=== PATIENT | male | born 1940 | race Caucasian/White ===

== ENCOUNTER 2018-02-18 18:23 | Inpatient (IN) | payer OTHER ==
[~2018-02-18] VITALS: Ht 152.4 cm; Wt 58.6 kg
--- NOTE | 2018-02-18 19:52 | ED GENERAL ADULT ---
History of Present Illness General Chief Complaint: Syncope and Near-Syncope Stated Complaint: NEAR SYNCOPAL Source: patient, family Exam Limitations: no limitations Vital Signs & Intake/Output Vital Signs & Intake/Output Vital Signs Date Time Temp Pulse Resp B/P B/P Pulse O2 O2 Flow FiO2 Mean Ox Delivery Rate 02/19 2024 98.2 80 20 120/66 99 Room Air 02/18 1954 97 Room Air 02/18 1826 97.7 79 16 145/77 97 Room Air Room Air Allergies Coded Allergies: No Known Allergies (12/27/15) Reconcile Medications No Known Home Medications Triage Note: PT BIBA WITH C/O SUDDEN ONSET OF WEAKNESS AND DIZZINESS WHILE AT WORK. DENIES SOB OR CP DURING EPISODE OR AT PRESENT. STROKE SCALE EN ROUTE NEGATIVE. BP LOW-NORMAL. ALL OTHER VSS. SX HAVE SUBSIDED TAPPER HELPER Triage Nurses Notes Reviewed? yes HPI: 77-year-old male with no significant past medical history presents with a single episode of lightheaded while working today at [employer]. Patient was standing experienced lightheadedness without loss of consciousness. Positive for diaphoresis for which the patient sat in the freezer waiting for an ambulance for 40 minutes. Negative for nausea vomiting chills fever constipation diarrhea. Negative for head trauma. Past History Medical History Any Pertinent Medical History? see below for history Neurological: NONE EENT: NONE Cardiovascular: NONE Respiratory: NONE Gastrointestinal: NONE Hepatic: NONE Renal: NONE Musculoskeletal: NONE Psychiatric: NONE Endocrine: NONE Blood Disorders: NONE Cancer(s): prostate cancer Tetanus Vaccine: 12/27/15 Surgical History Surgical History: non-contributory Psychosocial History What is your primary language Azeri Family History Hx Contributory? No Review of Systems Review of Systems Constitutional: Reports: no symptoms, see HPI. EENTM: Reports: no symptoms. Respiratory: Reports: no symptoms. Cardiovascular: Reports: no symptoms. GI: Reports: no symptoms. Genitourinary: Reports: no symptoms. Musculoskeletal: Reports: no symptoms. Skin: Reports: no symptoms. Neurological/Psychological: Reports: no symptoms. Hematologic/Endocrine: Reports: no symptoms. Immunologic/Allergic: Reports: no symptoms. All Other Systems: Reviewed and Negative Physical Exam Physical Exam General Appearance: no apparent distress, comfortable Comments: Gen.: Well-nourished, well-developed, no acute respiratory distress. Head: Normocephalic, atraumatic. Eyes: Normal inspection bilaterally, PERRLA, EOMI Ears: Normal inspection bilaterally Nose: Normal inspection Throat/mouth : Moist mucosa Neck: Supple, full range of motion, no goiter, equal carotid pulses, no carotid bruits Heart: Systolic heart murmur. Pulses are equal upper and lower. Lungs: Clear to auscultation bilaterally with normal air entry Chest: Nontender Back: Normal range of motion Abdomen: Soft, nontender, nondistended, normal bowel sounds Extremities: Normal range of motion grossly, equal radial pulses, no cyanosis clubbing or edema Neurologic: Cranial nerves 2 through 12 intact, speech is clear, no dysmetria Skin: warm and dry Psychiatric: Calm, cooperative, no apparent delusions or hallucinations Core Measures ACS in differential dx? Yes CVA/TIA Diagnosis: No Sepsis Present: No Sepsis Focused Exam Completed? No Progress Differential Diagnoses I considered the following diagnoses in my evaluation of the patient: During my care of this patient I considered the following differential diagnoses: Cardiac syncope/dysrhythmia but the patient had a prodromal phase and the EKG and telemetry showed no dysrhythmia, there were no significant electrolyte abnormalities, and the patient denied heart palpitations. In addition patient had 2 troponin levels that were normal. Obstructive hypertrophic cardiomyopathy but there was no history of syncope with exercise, dyspnea or chest pain on exertion, palpitations or history of cardiac disease or heart murmur. Aortic stenosis but the patient is no history of syncope after exercise and denied dyspnea/chest pain/syncope, had no crescendo decrescendo systolic murmur or precordial thrill. Subclavian steal syndrome but the patient denied arm pain or paresthesias and physical examination showed no pulse deficit. Carotid sinus hypersensitivity but physical examination reveals no goiter or other neck mass. Plan of Care: Orders Procedure Date/time Status URINALYSIS 02/18 193 Active MISTAKE 02/18 190 Active TROPONIN LEVEL 02/18 184 Complete COMPREHENSIVE METABOLIC PANEL 02/19 1848 Complete CBC WITHOUT DIFFERENTIAL 02/19 1848 Complete EKG 02/18 182 Active Current Medications Sig/Sony Start time Last Medication Dose Stop Time Status Admin Aspirin 325 MG ONCE ONE 02/18 2115 AC (Aspirin) 02/19 2116 Laboratory Tests 02/18/181940: Anion Gap 6, Estimated GFR 53 L, BUN/Creatinine Ratio 22.3, Glucose 112 H, Calcium 9.0, Total Bilirubin 0.4, AST 18, ALT 19 L, Alkaline Phosphatase 42, Troponin I 0.19 *H, Total Protein 6.3, Albumin 3.8, Globulin 2.5, Albumin/ Globulin Ratio 1.5, CBC w Diff NO MAN DIFF REQ, RBC 3.74 L, MCV 94.6 H, MCH 31.5 H, MCHC 33.3, RDW 13.5, MPV 6.7 L, Gran % 88.1 H, Lymphocytes % 6.9 L, Monocytes % 4.5, Eosinophils % 0.4, Basophils % 0.1, Absolute Granulocytes 8.0 H, Absolute Lymphocytes 0.6 L, Absolute Monocytes 0.4, Absolute Eosinophils 0, Absolute Basophils 0 Initial ED EKG: Sinus rhythm of 79. Normal axis. LVH. ST segment elevation in v1 , v3, v3 wihtout reciprical changes. Appropriate r-wave progression. No prior ECG for comparison. Comments: Spoke with Cardiology, Dr Fine, regarding Mr Mtz. EKG looks more like repolarization abnormalities. In [facility] there was a echo from 2014 which did not show aortic stenosis. However systolic murmur with LVH goes along with aortic stenosis. Patient to be admitted to telemetry for further evaluation. No prior EKG or troponin for comparison in [facility]. Departure Departure Disposition: STILL A PATIENT Condition: Stable Clinical Impression Primary Impression: Light-headed feeling Secondary Impressions: Elevated troponin, Heart murmur Referrals: Rob Mast MD (PCP/Family) Departure Forms: Customer Survey General Discharge Information Prescriptions: Current Visit Scripts No Known Home Medications Critical Care Note Critical Care Note Critical Care Time: non-applicable
[2018-02-18 19:53] LABS: ABSOLUTE BASOPHIL COUNT 0 /CUMM (0.0-0.2); ABSOLUTE EOSINOPHIL COUNT 0 /CUMM (0.0-0.7); ABSOLUTE LYMPH COUNT 0.6 /CUMM (1.2-3.4); ABSOLUTE MONOCYTE COUNT 0.4 /CUMM (0.10-0.60); BASOPHIL % 0.1 % (0.0-2.0); EOSINOPHIL % 0.4 % (0-5); GRANULOCYTE % 88.1 % (42.2-75.2); HEMATOCRIT 35.4 % (42-52); MEAN CORPUSCULAR HGB 31.5 PG (27.0-31.0); MEAN CORPUSCULAR HGB CONC 33.3 G/DL (33.0-37.0); MEAN CORPUSCULAR VOLUME 94.6 FL (80.0-94.0); MEAN PLATELET VOLUME 6.7 FL (7.4-10.4); PLATELET COUNT 286 /CUMM (130-400); RBC DISTRIBUTION WIDTH 13.5 % (11.5-14.5); RED BLOOD CELL CT 3.74 /CUMM (4.70-6.10); WHITE BLOOD CELL COUNT 9.1 /CUMM (4.8-10.8)
--- NOTE | 2018-02-18 22:02 | History & Physical ---
Jeffery Morales 02/18/181: General Information and HPI MD Statement: I have seen and personally examined SHAHRAM JENNINGS and documented this H&P. The patient is a 77 year old M who presented with a patient stated chief complaint of [near syncope]. Source of Information: patient, family Exam Limitations: no limitations History of Present Illness: The patient is a 77-year-old gentleman with a past medical history significant for prostate cancer and memory loss who was brought to [place] ED via ambulance due to one episode of lightheadedness which happened earlier today. Patient was accompanied by his in the exam room in ED, history was mainly taken from the patient but his also provided some information. The patient was working at the [employer] today when he suddenly felt "woobly". He did not fall on the ground and did not lose his consciousness and is aware of all the things that happened around him and no abnormal movement was reported, his coworkers at the [employer] took him to the back room, he felt dizziness for almost 20-25 minutes. He denies any associated symptoms like nausea, vomiting, headache, chest pain, chest pressure, chest tightness, sweating, chills, fever, abdominal pain, ringing in ears, visual changes, or abnormal smelling sensation. Based on the report from ED the patient had diaphoresis when he had this event for which he statin freezer while waiting for the ambulance. I rechecked that with the patient later and he denied sweating. The patient has a recent onset memory loss for the past couple of month, based on the reports from his he is not oriented to person sometimes for the past couple of months, and he has been having difficulty managing his financial issues like writing checks. Almost 2 weeks ago while he was driving he had difficulty finding out where he is not where he is going to. According to his , they have lived together in the same house, but they take care of their chores and foods and stuff separately, and she mentions that they have their own reasons for that; but she believes that from now on baby will have to change their lifestyle and she might need to take care of him. He had a history of low vitamin B12, no change in sensation, no numbness, no tingling. His appetite is normal, and his fluid intake has not changed recently. He has never undergone a colonoscopy, he does not report any blood in his stool, change in bowel habit, constipation, diarrhea, or weight loss. He was seen by contract serviceman many years ago and was never seen again by contract serviceman and he does not remember if he was ever told to have any cardiac problem. We have limited background medical history on PCI. He has not experienced any weakness, numbness, tingling in extremities, no difficulty swallowing, no slurred speech, no loss of sensation, numbness, weakness in face or other parts of his body. When looking at his face he has not a perfect shave but he does not look to be kyrie-agnosia. He does not report any exertional shortness of breath. He goes out with her dog daily for 10-15 minutes without experiencing any shortness of breath, he does not use a cane or walker at home to ambulate, he climbs the stairs down and up with no shortness of breath. He denies any chest pain, chest compression, chest tightness, lightheadedness, dizziness, sweating, nausea, and vomiting with exertion. He mentions that he failed slight dizziness while trying to stand up from sitting position in the exam room. Allergies: The patient does not have any known allergies to medications or foods Past medical history: Prostate cancer 15 years ago for which he had surgery and radiation and he is not on any medication for his prostate now Past surgical history: Prostatectomy, with type of the surgery is not known, probably radical, no complications reported by the patient, was done 15 years ago Family history: No significant Social history: Patient denies smoking, drinking, or recreational drug use. She lives with his in the same house, but either of them take care of the own household issues including food. Allergies/Medications Allergies: Coded Allergies: No Known Allergies (12/27/15) Compliance With Home Meds: UNKNOWN Past History Travel History Traveled to [place] past 21 day No Medical History Neurological: NONE EENT: NONE Cardiovascular: NONE Respiratory: NONE Gastrointestinal: NONE Hepatic: NONE Renal: NONE Musculoskeletal: NONE Psychiatric: NONE Endocrine: NONE Blood Disorders: NONE Cancer(s): prostate cancer Tetanus Vaccine: 12/27/15 Surgical History Surgical History: non-contributory Past Family/Social History Psychosocial History ETOH Use: denies use Illicit Drug Use: denies illicit drug use Review of Systems Review of Systems Constitutional: Reports: see HPI. Exam & Diagnostic Data Last 24 Hrs of Vital Signs/I&O Vital Signs Date Time Temp Pulse Resp B/P B/P Pulse O2 O2 Flow FiO2 Mean Ox Delivery Rate 02/18 2110 76 20 140/70 99 Room Air 02/19 2024 98.2 80 20 120/66 99 Room Air 02/18 1954 97 Room Air 02/18 1826 97.7 79 16 145/77 97 Room Air Room Air Physical Exam General Appearance Alert, Oriented X3, Cooperative, No Acute Distress Skin No Rashes, Actinc keratosis on lateral side of right elbow Skin Temp/Moisture Exam: Warm/Dry Sepsis Skin Exam (color): Normal for Ethnicity HEENT Atraumatic, PERRLA, EOMI, Mucous Membr. moist/pink Neck Supple, No JVD Cardiovascular Regular Rate, Normal S1, Normal S2, Systolic 3/6 murmur Lungs Clear to Auscultation, Normal Air Movement Last 24 Hrs of Labs/Lonnie: Laboratory Tests 02/19/18 0117: Troponin I 1.01 *H 02/18/182249: PT 13.0 H, INR 1.19 H 02/18/182113: Urinalysis LIGHT H, Urine Color YEL, Urine Clarity CLEAR, Urine pH 6.0, Ur Specific [place] 1.025, Urine Protein TRACE H, Urine Ketones TRACE H, Urine Nitrite NEG, Urine Bilirubin NEG, Urine Urobilinogen 1.0, Ur Leukocyte Esterase NEG, Ur Microscopic SEDIMENT EXAMINED, Urine RBC RARE, Urine WBC RARE, Ur Epithelial Cells FEW, Hyaline Casts 1-3 H, Urine Mucus MOD H, Urine Hemoglobin NEG, Urine Glucose NEG 02/18/181940: Anion Gap 6, Estimated GFR 53 L, BUN/Creatinine Ratio 22.3, Glucose 112 H, Calcium 9.0, Total Bilirubin 0.4, AST 18, ALT 19 L, Alkaline Phosphatase 42, Troponin I 0.19 *H, Total Protein 6.3, Albumin 3.8, Globulin 2.5, Albumin/ Globulin Ratio 1.5, CBC w Diff NO MAN DIFF REQ, RBC 3.74 L, MCV 94.6 H, MCH 31.5 H, MCHC 33.3, RDW 13.5, MPV 6.7 L, Gran % 88.1 H, Lymphocytes % 6.9 L, Monocytes % 4.5, Eosinophils % 0.4, Basophils % 0.1, Absolute Granulocytes 8.0 H, Absolute Lymphocytes 0.6 L, Absolute Monocytes 0.4, Absolute Eosinophils 0, Absolute Basophils 0 Diagnostic Data EKG Results 2 EKGs were done, minimal ST depression in leads aVF and II, no change between the 2 EKGs Other Results Head CT scan: No acute intracranial hemorrhage or mass effect. Generalized cerebral volume loss with chronic microvessel ischemic fisher Assessment/Plan Assessment: The patient is a 77-year-old male with a past medical history for prostate cancer 15 years ago and recent onset dementia, who was brought to ED by ambulance due to a presyncope syndrome. The patient has not been following up for healthcare and we do not have any old records available here. He has states that he does not have any health issues other than dementia. Near syncope finding cause: The patient had a near syncope episode that [employer] while he was at work, no other symptoms were associated with this event which was witnessed by his coworkers. We obtained a head CT scan which ruled out acute hemorrhagic pathologies in this patient. There is a possibility that this might have a cardiac origin. The patient does have a systolic murmur, and based on the ED report he had sweating at the time of near syncope event. He has not been on anticoagulation and does not take any cardiac medications or statin. He had troponin of 0.19 on admission, creatinine of 1.7 (we do not know if it is acute or chronic kidney failure). His troponin increased to 1.01 almost 6 hours later. The patient did not report chest pain, chest pressure, chest tightness, shortness of breath, nausea, vomiting. After discussing the case with my senior resident and my attending Dr. Pop, they decided to start heparin drip for this patient and place her contract serviceman consult for morning. Plan: Aspirin, atorvastatin, serial EKG troponin, head CT, rectal exam for guaiac before starting heparin which was negative for guiac, color Dopplers ultrasound of carotid arteries, avoid nephrotoxic agents, IV fluids, As Ranked By This Provider Problem List: 1. Light-headed feeling 2. Elevated troponin 3. Heart murmur Core Measures/Misc (02/11) Acute Coronary Syndrome ACS Diagnosis: No Congestive Heart Failure Congestive Heart Failure Diagnosis No Cerebrovascular Accident CVA/TIA Diagnosis: No VTE (View Protocol) VTE Risk Factors Age>40 No Mechanical VTE Prophylaxis d/t N/[facility] VTE Pharm Prophylaxis d/t NA PharmProphylax ordered Sepsis (View protocol) Sepsis Present: No If YES complete Sepsis Event Note If YES complete Sepsis Event Note Freddy Garcia MD 02/18/18 4525: General Information and HPI Allergies/Medications Home Med list Mirtazapine 15 MG TABLET 1 TAB PO QPM DEPRESSION (Reported) Core Measures/Misc (02/11) Acute Coronary Syndrome ACS Diagnosis: No Congestive Heart Failure Congestive Heart Failure Diagnosis No VTE (View Protocol) VTE Risk Factors Age>40 No Mechanical VTE Prophylaxis d/t N/A MechProphylax Ordered No VTE Pharm Prophylaxis d/t NA PharmProphylax ordered Sepsis (View protocol) Sepsis Present: No If YES complete Sepsis Event Note If YES complete Sepsis Event Note Resident Review Statement Resident Statement: examined this patient, discussed with learning and development intern, agreed with learning and development intern Other Findings: Patient is a 77-year-old male BIBA with an episode of sudden loss of awareness of surroundings, which was lasted around 25 minutes. PMH-history of prostate surgery around 15 years ago underwent radiation, history of inguinal hernia, recently undergoing evaluation for dementia under Dr. Rommel Peterson and scheduled to get MRI brain, depression on mirtazapine, low vitamin B12 History of present illness-patient works at [employer] he was completely all right all over the morning he had small amount of the breakfast and lunch. When he was getting some stuff to another coworker he suddenly felt that he is unable to understand surrounding. He was not able to respond. They sat him down for 25 minute and called ambulance. He was feeling woobly at that time. Denies any headache, dizziness, nausea, vomiting, chest pain, shortness of breath, palpitation. In the past he had a similar episode around 2 weeks ago, he lost while driving and unable to figure out how to go back to the home. He did not had any accidental hit his car. He had to call his to know where to go. Because of this episode he lost his full-time job around 2 weeks ago and both spouses and stress. He had his evaluation with his primary care Dr. Rommel Vitale daily. During that visit his blood pressure was 150/90. He was not given any medication but started on tablet mirtazapine 7.5 mg daily. Personal history-he lives with his , works at the [employer], denies smoking, alcohol, use of other medications.They have stress as he recently lost his job. Vital signs -temperature 97.7, pulse 79, respiratory 16, blood pressure 145/77, SPO2 97% on room air. On physical examination-conscious cooperative oriented to time place and person, neck supple, no JVD, lungs bilateral clear, heart S1-S2 normal along with a systolic murmur and aortic pulmonary and tricuspid and mitral area more prominent in the mitral area nonradiating, abdomen soft bowel sounds positive, neurological examination-cranial nerves intact following all the verbal command, moving all limbs, DTRs 2+, plantar flexor, extremities-no edema, pulses palpable. Blood workup-hemoglobin 11.8, hematocrit 35.4, MCV 94.6, platelet count 286, granulocyte 88.1, Serum sodium 135, potassium 4.1, chloride 99, carbon DEXA 30, anion gap 6, BUN 29, creatinine 1.3, GFR 53, glucose 112, calcium 9.0, total bilirubin 0.4, AST 18, ALT 19, alkaline phosphatase 42, troponin I 0.19, albumin 3.8, PT/INR 13/ 1.19, urinalysis-light, trace proteins and ketones, hyaline cast 1-3. Problem list- * Presyncope/syncope under evaluation possible TIA/arrhythmia need to rule out acute coronary syndrome * Demand ischemia * Normocytic normochromic anemia * Hyponatremia * Acute kidney injury Assessment and plan- * We will admit the patient to telemetry floor * We will do carotid, echocardiogram, lipid profile, orthostatic blood pressure (lying 140/70, sitting 139/70, standing 131/76) * We will do serial troponins and EKGs - 12:00 and 6:00AM * We will do CT scan of the head to rule out any infarction * We will start patient on gentle IV fluids 50 cc/h; for TURNER * We will consider ultrasound of the abdomen if patient's BP does not improve after IV hydration to rule out postobstructive causes. * We will continue mirtazapine as before. * CODE STATUS DNR/DNI * DVT prophylaxis-ALPS/heparin * Diet-heart healthy diet Please call the [phone] for any updates. Rafael Pop MD 02/19/18 0303: Core Measures/Misc (02/11) Sepsis (View protocol) If YES complete Sepsis Event Note If YES complete Sepsis Event Note Attending MD Review Statement Attending Statement Attending MD Statement: examined this patient, discuss w/resident/PA/ACCOUNTS PAYABLE PAYROLL COORDINATOR, agreed w/resident/PA/ACCOUNTS PAYABLE PAYROLL COORDINATOR Attending Assessment/Plan: Patient is seen and examined independently by me. Care plan discussed with biomedical engineering technician and/or resident. I agree with the physical exam findings and plan of care as outlined above with the following changes and additions. 77 yo male with history of prostate cancer s/p radiation, recent forgetfulness and being worked up for dementia, presented with lightheadedness. At about 4: 30pm, he was working and standing at that time, he has sudden onset of lightheadedness, diaphoresis and co-worker states he appears not aware of his surroundings but has no LOC or incontinence. He was sat down by his co-worker and his symptoms resolved in 45 min. He denies chest pain, SOB, palpitation, abdominal pain or nausea. On cardiac exam, it is regular, S1S2 and has a HSM heard best at lower LSB and apex with thrills at apex. Lungs are clear and has no pedal edema. In the ED, troponin 0.19. EKG shows NSR at 79 with LVH and QS complex in anterior leads. Patient is admitted to inpatient to [facility] for near syncope and elevated troponin. CT head shows no acute intracranial abnormality. Cardiac monitoring. Check lipid profile and serial troponin/EKG. Check carotid US and echocardiogram. Start ASA. Cardiology consult. His second troponin rises to 1.01, no new EKG changes, asymptomatic. Treat for NSTEMI with ASA, IV heparin and statin. HR 60 and will not start beta-claudia now. Signed: Rafael Pop MD FACP
[2018-02-18] MEDS ORDERED: MIRTAZAPINE15 M2 PO (23:20)
--- NOTE | 2018-02-19 01:53 | CT SCAN REPORT ---
EXAMINATION: CT HEAD WITHOUT CONTRAST CLINICAL INFORMATION: TIA. Lightheadedness, presyncope. COMPARISON: None TECHNIQUE: Contiguous axial imaging was performed from the skull base to vertex without intravenous administration of contrast. DLP: 604 mGy-cm FINDINGS: There is no evidence of acute intracranial hemorrhage, midline shift, mass effect, or extra-axial fluid collection. There is generalized cerebral and cerebellar volume loss. There is a background of fairly confluent hypoattenuation involving the cerebral white matter bilaterally, nonspecific, though most compatible with chronic microvascular ischemic change. No evidence of hydrocephalus. Dilated perivascular space in the left temporal stem. The calvarium is intact. Thoracic calcifications along the carotid siphons noted. Visualized paranasal sinuses and mastoid air cells are essentially clear. IMPRESSION: No acute intracranial hemorrhage or mass effect. Generalized cerebral volume loss with chronic microvessel ischemic change.
[2018-02-19 02:12] VITALS: BP 130/80
[2018-02-19 06:00] VITALS: BP 140/82
[2018-02-19 07:51] LABS: ABSOLUTE BASOPHIL COUNT 0 /CUMM (0.0-0.2); ABSOLUTE EOSINOPHIL COUNT 0.1 /CUMM (0.0-0.7); ABSOLUTE GRANULOCYTE CT 3.5 /CUMM (1.4-6.5); ABSOLUTE LYMPH COUNT 1.1 /CUMM (1.2-3.4); ABSOLUTE MONOCYTE COUNT 0.2 /CUMM (0.10-0.60); BASOPHIL % 0.5 % (0.0-2.0); GRANULOCYTE % 71.9 % (42.2-75.2); HEMATOCRIT 32.7 % (42-52); MEAN CORPUSCULAR HGB 32.3 PG (27.0-31.0); MEAN CORPUSCULAR HGB CONC 34.6 G/DL (33.0-37.0); MEAN CORPUSCULAR VOLUME 93.3 FL (80.0-94.0); MEAN PLATELET VOLUME 7.7 FL (7.4-10.4); PLATELET COUNT 239 /CUMM (130-400); RBC DISTRIBUTION WIDTH 13.2 % (11.5-14.5); RED BLOOD CELL CT 3.51 /CUMM (4.70-6.10); WHITE BLOOD CELL COUNT 4.9 /CUMM (4.8-10.8)
[2018-02-19 08:16] LABS: PTT 39 SEC (25-37)
--- NOTE | 2018-02-19 09:07 | PN- Gen Med ---
Violetta Santos 02/19/18 0907: Assessment/Plan Medical Problem List: 1. Light-headed feeling 2. Elevated troponin 3. Heart murmur Plan: 77 year old male with PMH prostate cancer (remote tx with radiation) presented with near syncope and admitted with elevated troponins. Problem List 1. Near syncope rule out TIA vs Cardiac origin vs PE 2. Elevated troponins likely 2/2 demand ischemia 3. TURNER #Near syncope rule out TIA vs Cardiac origin vs PE -CTA negative for PE -Cardiology consult: obtain CTA r/o PE; Echo to evaluate for cardiac origin; possibly need outpatient stress test -Reaching out to cardiology for advise to discontinue IV heparin now that trop has down trended #Elevated troponins -down trending; no longer following -likely due to demand ischemia; echo pending for structural heart disease #TURNER-resolved with IV hydration -IV fluids discontinued this morning DVT prophylaxis: IV heparin/ambulate Code status: DNR/DNI Discharge: anticipate discharge possibly tomorrow if echo results are in. Subjective Follow-up For: near syncope Complaints: no complaints Tele-Events Since Last Visit: sinus bradycardia 54-69 rate Subjective: No complaints or events overnight. Patient denies any chest pain, SOB, n/v/d, palpitations, lightheadedness, dizziness. Review of Systems Constitutional: Reports: no symptoms. EENTM: Reports: no symptoms. Cardiovascular: Reports: no symptoms. Respiratory: Reports: no symptoms. Gastrointestinal: Reports: no symptoms. Genitourinary: Reports: no symptoms. Musculoskeletal: Reports: no symptoms. Skin: Reports: no symptoms. Objective Last 24 Hrs of Vital Signs/I&O Vital Signs Date Time Temp Pulse Resp B/P B/P Pulse O2 O2 Flow FiO2 Mean Ox Delivery Rate 02/19 1428 98.3 71 20 140/68 97 Room Air 02/19 0600 98.6 68 20 140/82 97 Room Air 02/19 0212 98.1 71 12 130/80 98 Room Air 02/19 0127 98.9 62 20 152/77 98 Room Air 02/19 0026 Room Air 02/18 2330 99.0 70 20 126/62 98 Room Air 02/18 2110 76 20 140/70 99 Room Air 02/19 2024 98.2 80 20 120/66 99 Room Air 02/184 97 Room Air 02/18 1826 97.7 79 16 145/77 97 Room Air Room Air Intake & Output 02/19 1600 02/19 0800 02/19 0000 Intake Total 372 Output Total 200 Balance 372 -200 Intake, IV 252 Intake, Oral 120 Output, Urine 200 Patient 120 lb 150 lb Weight Weight Bed scale Reported by Patient Measurement Method Physical Exam General Appearance: Alert, Oriented X3, Cooperative, No Acute Distress, oriented x3 although slow to come up with date and location, thin male Skin: No Rashes Skin Temp/Moisture Exam: Warm/Dry HEENT: Atraumatic, PERRLA Neck: Supple Cardiovascular: Regular Rate, Normal S1, Normal S2, systolic murmur Lungs: Clear to Auscultation Abdomen: Normal Bowel Sounds, Soft Extremities: No Cyanosis, No Edema Gurdeep RUBY,Adali 02/19/18 0955: Assessment/Plan Medical Assessment: Patient seen and examined. Agree with interns note. This is a 77-year-old male with a past medical history of prostate CA who came in with a near syncopal event and was found to have a positive troponin. He has no symptoms and his EKG has LVH which makes ischemia hard to diagnose. Discussed with Dr. Houston from cardiology and will get a CTA to make sure there is no PE. He is on aspirin statin and's been started on IV heparin empirically and will follow up.
--- NOTE | 2018-02-19 10:47 | Cons- Cardiology ---
General Information and HPI Consulting Request Date of Consult: 02/19/18 Requested By: Gurdeep RUBY,Adali Garrett Reason for Consult: Syncope, elevated troponin isoenzyme Source of Information: patient, old records Exam Limitations: no limitations History of Present Illness: The patient is a 77-year-old gentleman with a past medical history of prostate CA (status post remote radiation therapy). He presents to our hospital with a sudden episode of near syncope, and subsequently had an elevated troponin isoenzyme. The patient states he was at work (light physical work in a [employer]), and suddenly had onset of lightheadedness, without vertigo. There was no concurrent symptoms of palpitations nor chest pain, dyspnea nor nausea. The episode was examined, lasting several minutes, and had spontaneous alleviation. On presentation to the emergency room, the patient was noted to be hemodynamically stable, in normal sinus rhythm by EKG and without ischemic changes. He was however noted to be hyponatremic, and subsequently ruled in for myocardial infarction with troponin isoenzymes peaking at 1.01. Following admission, telemetry demonstrates no arrhythmias noted. He has remained asymptomatic from a cardiac standpoint while an inpatient. Of note, the patient had an episode of sudden confusion while driving several weeks ago. This was stated as a sudden disorientation as to location, not accompanied by palpitations chest pain nor dyspnea. The patient is otherwise active, and describes performance of approximately 6 METs of physical activity on a regular basis without difficulty. Allergies/Medications Allergies: Coded Allergies: No Known Allergies (12/27/15) Home Med List: Mirtazapine 15 MG TABLET 1 TAB PO QPM DEPRESSION (Reported) Current Medications: Current Medications Sig/Sony Start time Last Medication Dose Route Stop Time Status Admin Aspirin 81 MG DAILY 02/19 900 DC PO Aspirin 325 MG DAILY 02/19 900 CAN PO Aspirin 81 MG DAILY 02/19 900 CAN PO Aspirin 325 MG DAILY 02/19 900 AC 02/19 PO 924 Aspirin 325 MG ONCE ONE 02/18 2115 DC 02/18 PO 02/18 Aspirin 0 .STK-MED ONE 02/18 2114 DC PO Atorvastatin Calcium 80 MG 0 02/19 1700 AC PO Atorvastatin Calcium 40 MG 1700 02/19 0345 DC PO Atorvastatin Calcium 80 MG 1700 02/19 0315 CAN PO 02/19 0500 Heparin Sodium 25,000 UNIT Q24H 02/19 0315 AC 02/19 (Porcine) IV 0400 Sodium Chloride 500 ML Heparin Sodium 5,000 UNIT Q8 02/18 2319 DC 02/19 (Porcine) SC 0010 Mirtazapine 15 MG QPM 02/19 2100 AC PO Sodium Chloride 1,000 ML Q20H 02/19 0115 DC 02/19 IV 0125 Review of Systems Review of Systems: The review of systems is negative for chest pains, palpitations nor lightheadedness. The remainder of the 14 point review of systems is noncontributory with the exception of above. Past History Travel History Traveled to [place] past 21 day No Medical History Neurological: NONE EENT: NONE Cardiovascular: NONE Respiratory: NONE Gastrointestinal: NONE Hepatic: NONE Renal: NONE Musculoskeletal: NONE Psychiatric: NONE Endocrine: NONE Blood Disorders: NONE Cancer(s): prostate cancer Surgical History Surgical History: non-contributory Psychosocial History Smoking Status: Never Smoked ETOH Use: denies use Illicit Drug Use: denies illicit drug use Exam & Diagnostic Data Vital Signs and I&O Vital Signs Date Time Temp Pulse Resp B/P B/P Pulse O2 O2 Flow FiO2 Mean Ox Delivery Rate 02/19 0600 98.6 68 20 140/82 97 Room Air 02/19 0212 98.1 71 12 130/80 98 Room Air 02/19 0127 98.9 62 20 152/77 98 Room Air 02/19 0026 Room Air 02/18 2330 99.0 70 20 126/62 98 Room Air 02/18 2110 76 20 140/70 99 Room Air 02/19 2024 98.2 80 20 120/66 99 Room Air 02/18 1954 97 Room Air 02/18 1826 97.7 79 16 145/77 97 Room Air Room Air Intake & Output 02/19 1600 02/19 0800 02/19 0000 02/18 1600 02/18 0800 02/18 0000 Intake Total 372 Output Total 200 Balance 372 -200 Intake, IV 252 Intake, Oral 120 Output, Urine 200 Patient 120 lb 150 lb Weight Weight Bed scale Reported by Patient Measurement Method Physical Exam: General: Nontoxic, no apparent distress. HEENT: Sclera and conjunctiva within normal limits, without xanthelasmas. Neck: Carotids 2+ without bruits. Respiratory: Clear to auscultation, air movement is good, without accessory respiratory muscle use. Heart: Regular rate and rhythm, 3/6 systolic murmur heard best right sternal border, unchanged with inspiration or Valsalva., without JVD. Abdomen: Soft, nontender, no masses, normoactive bowel sounds. Extremities: Without clubbing, cyanosis, without edema. Neuro: Nonfocal exam, strength, 5 out of 5 Skin: Within normal limits without lesions. Psych: Mood and affect: Normal Labs/Lonnie Results: Laboratory Tests 02/19 02/19 02/18 0640 0117 2250 Chemistry Sodium (137 - 145 mmol/L) 134 L Potassium (3.5 - 5.1 mmol/L) 4.0 Chloride (98 - 107 mmol/L) 104 Carbon Dioxide (22 - 30 mmol/L) 25 Anion Gap (5 - 16) 5 BUN (9 - 20 mg/dL) 24 H Creatinine (0.7 - 1.2 mg/dL) 0.9 Estimated GFR (>60 ml/min) > 60 BUN/Creatinine Ratio (7 - 25 %) 26.7 H Troponin I (<0.11 ng/ml) 0.65 *H 1.01 *H Triglycerides (<150 mg/dL) 39 Cholesterol (< 200 MG/DL) 157 LDL Cholesterol, Calc (65 - 129 mg/dL) 99 HDL Cholesterol (40 - 60 mg/dL) 51 Cholesterol/HDL Ratio (0.00 - 4.88 %) 3.1 Coagulation PT (9.4 - 12.5 SEC) 13.0 H INR (0.90 - 1.17) 1.19 H APTT (25 - 37 SEC) 39 H Hematology CBC w Diff NO MAN DIFF REQ WBC (4.8 - 10.8 /CUMM) 4.9 RBC (4.70 - 6.10 /CUMM) 3.51 L Hgb (14.0 - 18.0 G/DL) 11.3 L Hct (42 - 52 %) 32.7 L MCV (80.0 - 94.0 FL) 93.3 MCH (27.0 - 31.0 PG) 32.3 H MCHC (33.0 - 37.0 G/DL) 34.6 RDW (11.5 - 14.5 %) 13.2 Plt Count (130 - 400 /CUMM) 239 MPV (7.4 - 10.4 FL) 7.7 Gran % (42.2 - 75.2 %) 71.9 Lymphocytes % (20.5 - 51.1 %) 21.7 Monocytes % (1.7 - 9.3 %) 3.9 Eosinophils % (0 - 5 %) 2.0 Basophils % (0.0 - 2.0 %) 0.5 Absolute Granulocytes (1.4 - 6.5 /CUMM) 3.5 Absolute Lymphocytes (1.2 - 3.4 /CUMM) 1.1 L Absolute Monocytes (0.10 - 0.60 /CUMM) 0.2 Absolute Eosinophils (0.0 - 0.7 /CUMM) 0.1 Absolute Basophils (0.0 - 0.2 /CUMM) 0 02/18 Chemistry Sodium (137 - 145 mmol/L) 135 L Potassium (3.5 - 5.1 mmol/L) 4.1 Chloride (98 - 107 mmol/L) 99 Carbon Dioxide (22 - 30 mmol/L) 30 Anion Gap (5 - 16) 6 BUN (9 - 20 mg/dL) 29 H Creatinine (0.7 - 1.2 mg/dL) 1.3 H Estimated GFR (>60 ml/min) 53 L BUN/Creatinine Ratio (7 - 25 %) 22.3 Glucose (65 - 99 mg/dL) 112 H Calcium (8.4 - 10.2 mg/dL) 9.0 Total Bilirubin (0.2 - 1.3 mg/dL) 0.4 AST (17 - 59 U/L) 18 ALT (21 - 72 U/L) 19 L Alkaline Phosphatase (< 127 U/L) 42 Troponin I (<0.11 ng/ml) 0.19 *H Total Protein (6.3 - 8.2 g/dL) 6.3 Albumin (3.5 - 5.0 g/dL) 3.8 Globulin (1.9 - 4.2 gm/dL) 2.5 Albumin/Globulin Ratio (1.1 - 2.2 %) 1.5 Hematology CBC w Diff NO MAN DIFF REQ WBC (4.8 - 10.8 /CUMM) 9.1 RBC (4.70 - 6.10 /CUMM) 3.74 L Hgb (14.0 - 18.0 G/DL) 11.8 L Hct (42 - 52 %) 35.4 L MCV (80.0 - 94.0 FL) 94.6 H MCH (27.0 - 31.0 PG) 31.5 H MCHC (33.0 - 37.0 G/DL) 33.3 RDW (11.5 - 14.5 %) 13.5 Plt Count (130 - 400 /CUMM) 286 MPV (7.4 - 10.4 FL) 6.7 L Gran % (42.2 - 75.2 %) 88.1 H Lymphocytes % (20.5 - 51.1 %) 6.9 L Monocytes % (1.7 - 9.3 %) 4.5 Eosinophils % (0 - 5 %) 0.4 Basophils % (0.0 - 2.0 %) 0.1 Absolute Granulocytes (1.4 - 6.5 /CUMM) 8.0 H Absolute Lymphocytes (1.2 - 3.4 /CUMM) 0.6 L Absolute Monocytes (0.10 - 0.60 /CUMM) 0.4 Absolute Eosinophils (0.0 - 0.7 /CUMM) 0 Absolute Basophils (0.0 - 0.2 /CUMM) 0 Urines Urinalysis LIGHT H Urine Color (YEL,AMB,STR) YEL Urine Clarity (CLEAR) CLEAR Urine pH (5.0 - 8.0) 6.0 Ur Specific [place] (1.001 - 1.035) 1.025 Urine Protein (NEG,<30 MG/DL) TRACE H Urine Ketones (NEG) TRACE H Urine Nitrite (NEG) NEG Urine Bilirubin (NEG) NEG Urine Urobilinogen (0.1 - 1.0 EU/dl) 1.0 Ur Leukocyte Esterase (NEG) NEG Ur Microscopic SEDIMENT EXAMINED Urine RBC (0 - 5 /HPF) RARE Urine WBC (0 - 2 /HPF) RARE Ur Epithelial Cells (NONE,FEW) FEW Hyaline Casts (0/LPF) 1-3 H Urine Mucus (FEW,NONE) MOD H Urine Hemoglobin (NEG) NEG Urine Glucose (N MG/DL) NEG Assessment/Plan Assessment/Plan 77-year-old gentleman with a past medical history of prostate CA (status post remote radiation therapy). He presents to our hospital with a sudden episode of near syncope. He was noted to have elevated troponin isoenzymes. Near syncope: The patient presents with near syncope without a prodrome of palpitations chest pain nor dyspnea. The etiology of his symptoms is unclear; however, he remained hemodynamically stable following presentation to our emergency room. The elevated troponin isoenzyme concurrently on presentation may suggest an arrhythmia that was transient in nature; however, may as well represented etiology such as a pulmonary embolism. A CTA will be obtained today to exclude the same, and an echocardiogram will be obtained to better evaluate his cardiac structure and function including potential etiology to his murmur. The transient episode of disorientation while driving several weeks ago however is unlikely secondary to a arrhythmic etiology given his maintenance of postural tone and no near-syncopal symptoms. Troponin isoenzyme elevation: The patient has a mild troponin isoenzyme elevation in the setting of near syncope. We will continue to evaluate for a possible underlying pulmonary embolism as the etiology. Other possible etiologies include arrhythmia as well as underlying structural abnormality. An ischemic etiology is unlikely; however , stress testing with imaging will be performed at a later date. Thank you for allowing us to participate in the care of your patient. Please do not hesitate to contact us further with any questions. Sincerely, Vini Montalvo MD [facility] Consult Acknowledgment - Thank you for your consult request.
--- NOTE | 2018-02-19 11:45 | ULTRASOUND REPORT ---
EXAMINATION: BILATERAL DUPLEX CAROTID ULTRASOUND CLINICAL INDICATION: Near syncope. COMPARISON: None TECHNIQUE: TECHNIQUE: Real-time ultrasound and Doppler techniques (integrating B-mode 2D vascular images, Doppler spectral analysis and color flow Doppler imaging) were utilized to interrogate the extracranial carotid and vertebral arteries bilaterally. The degree of stenosis determined by criteria similar to NASCET. . FINDINGS: On the RIGHT, mild focal atherosclerotic calcified plaques are present at the distal common carotid artery extending into the bifurcation. In the distal CCA, the peak systolic velocity is 59 cm/sec. In the proximal ICA, the peak systolic velocity is 80 cm/sec, and the end diastolic velocity is 26 cm/sec. The ICA/CCA ratio is 1.71. The proximal part of the right ECA is patent. On the LEFT, mild focal atherosclerotic calcified plaques are present at the distal common carotid artery and extending into the origin of the internal carotid artery. In the distal CCA, the peak systolic velocity is 62 cm/sec. In the proximal ICA, the peak systolic velocity is 72 cm/sec, and the end diastolic velocity is 28 cm/sec. The ICA/CCA ratio is 1.52. The proximal part of the left ECA is patent as well. The vertebral arteries show antegrade flow with normal waveforms bilaterally. IMPRESSION: 1. The right internal carotid artery shows no hemodynamically significant stenosis. 2. The left internal carotid artery shows no hemodynamically significant stenosis. 3. Both vertebral arteries are patent and show antegrade flow.
--- NOTE | 2018-02-19 12:13 | CT SCAN REPORT ---
EXAMINATION: CT ANGIOGRAM OF THE CHEST WITH AND WITHOUT CONTRAST (CT PULMONARY ANGIOGRAM FOR PE) CLINICAL INFORMATION: Reason for Study:
Presumptive Dx: ACS vs PE
Signs Symptoms: near syncope
COMPARISON: None TECHNIQUE: Prior to contrast administration, noncontrast localization images were obtained. Subsequently, multidetector volumetric imaging was performed from the thoracic inlet to below the diaphragms following the administration of 95 mL Optiray 320 intravenous contrast. No contrast reaction reported. Sagittal, coronal, and MIP oblique sagittal reformatted images were obtained on the CT workstation, uploaded to PACS, and reviewed. Total exam dose-length product 245.45 mGy-cm. FINDINGS: QUALITY OF STUDY/CONTRAST BOLUS: Satisfactory PULMONARY ARTERIES: No central or segmental pulmonary emboli. THORACIC AORTA: The ascending thoracic aorta measures 4 cm at its maximum dimension, mildly aneurysmal. LUNG: Subtle pleural parenchymal opacities are noted at both lung apices, presumably represent pleural parenchymal scar. Mild hypoventilatory changes are noted at both lung bases. Otherwise unremarkable. The tracheobronchial tree appeared patent. PLEURA: No pleural effusion or pneumothorax. MEDIASTINUM: Normal heart size. No pericardial effusion. No hilar or mediastinal lymphadenopathy. No evidence of septal bowing or right heart strain. CHEST WALL/AXILLA: No axillary or internal mammary lymphadenopathy. OSSEOUS STRUCTURES: No acute or suspicious osseous abnormality. UPPER ABDOMEN: Unremarkable. No reflux of contrast into the hepatic veins to suggest elevated right heart pressures. IMPRESSION: No CT evidence of pulmonary embolism. The ascending thoracic aorta measures 4 cm at its maximum dimension, mildly aneurysmal. Presumed pleural parenchymal scar at both lung apices and hypoventilatory changes at both lung bases are present. VTE: negative.
[2018-02-19 13:41] LABS: PTT 44 SEC (25-37)
[2018-02-19 14:28] VITALS: BP 140/68
[2018-02-19] MEDS ORDERED: ATORVASTATIN CA80 M1 PO (15:35)
[2018-02-19] MEDS ORDERED: ASPIRIN325 M2 PO (15:35)
[2018-02-19 22:28] VITALS: BP 136/76
--- NOTE | 2018-02-20 06:17 | Event Note ---
Event Note Event Note: Subjective: A stroke alert was called for Mr Keen, I rushed with my resident toward [facility] room. He was lying in bed and does not seem in any distress, while talking with patient he does not seem to have slurred speech, apparently there was no facial drip, no focal deficit. Background: 77 year old male with PMH prostate cancer s/p radiation theraphy presented with near syncope and admitted with elevated troponins, TURNER. A/P: O/E: Patient was oriented in time place person. 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 My resident spoke with Neurologist he did not reommended tPA because patient was seen last time in usual state of health at 11pm so he is not a good candidate for tPA now due to window period for tPA.. CT scan without contrast ordered. CT head showed no acute changes ischemia or bleed. MRI of brain ordered. Patient discussed with morning team informed about nigt event and furthur management.
--- NOTE | 2018-02-20 06:19 | CT SCAN REPORT ---
EXAMINATION: CT HEAD WITHOUT CONTRAST CLINICAL INFORMATION: Stroke. Right facial droop. COMPARISON: CT head 02/19/2018 TECHNIQUE: Contiguous axial imaging was performed from the skull base to vertex without intravenous administration of contrast. DLP: 611 mGy-cm FINDINGS: There is no evidence of acute intracranial hemorrhage, midline shift, mass effect, or extra-axial fluid collection. There is generalized cerebral and cerebellar volume loss. There is a background of fairly confluent hypoattenuation involving the cerebral white matter bilaterally, nonspecific, though most compatible with chronic microvascular ischemic change. No evidence of hydrocephalus. Dilated perivascular space in the left temporal stem. The calvarium is intact. Thoracic calcifications along the carotid siphons noted. Visualized paranasal sinuses and mastoid air cells are essentially clear. IMPRESSION: Stable exam. No acute intracranial hemorrhage or large territorial infarct. Please note, the background of chronic microvascular ischemic change limits evaluation for acute ischemia. MRI would be more sensitive to evaluate for acute ischemia. This critical result was discussed with Dr. Garcia on 02/20/2018 6:12 AM, and it was ascertained that the content and urgency of the report was understood at the time of direct communication.
[2018-02-20 06:43] VITALS: BP 180/90
--- NOTE | 2018-02-20 08:05 | PN- Housestaff ---
Acosta Santosley 02/20/18 0805: Subjective Follow-up For: near syncope Complaints: no complaints Tele-Events Since Last Visit: sinus rhythm rate 62-71 Subjective: Stroke Event called last night. Patient was described to be wandering around and RN noticed right sided facial droop. Medical team responded and did not appreciate any focal deficits. Neurology was called and did not recommend tPA. This morning patient states he felt fine the whole time. He denies any lightheadedness, chest pain, SOB, confusion, fever, abdominal pain. Review of Systems Constitutional: Reports: no symptoms. EENTM: Reports: no symptoms. Cardiovascular: Reports: no symptoms. Respiratory: Reports: no symptoms. Gastrointestinal: Reports: no symptoms. Genitourinary: Reports: no symptoms. Musculoskeletal: Reports: no symptoms. Skin: Reports: no symptoms. Objective Last 24 Hrs of Vital Signs/I&O Vital Signs Date Time Temp Pulse Resp B/P B/P Pulse O2 O2 Flow FiO2 Mean Ox Delivery Rate 02/20 0817 93 164/84 02/20 0700 70 180/96 02/20 0643 98.2 80 18 180/90 98 02/20 0543 96 Room Air 02/19 2228 98.3 72 16 136/76 96 Room Air 02/19 2029 128/68 02/19 1428 98.3 71 20 140/68 97 Room Air Intake & Output 02/20 1600 02/20 0800 02/20 0000 Intake Total 120 240 Output Total Balance 120 240 Intake, Oral 120 240 Patient 129 lb Weight Physical Exam General Appearance: Alert, Oriented X3, Cooperative, No Acute Distress Skin: No Rashes Skin Temp/Moisture Exam: Warm/Dry HEENT: Atraumatic, PERRLA Neck: Supple Cardiovascular: Regular Rate, Normal S1, Normal S2, systolic murmur heard best over apex Lungs: Clear to Auscultation, Normal Air Movement Abdomen: Normal Bowel Sounds, Soft, No Tenderness Extremities: No Cyanosis, No Edema Assessment/Plan Assessment: 77 year old male with PMH prostate cancer (remote tx with radiation) presented with near syncope and admitted with elevated troponins. Problem List 1. Near syncope rule out TIA vs Cardiac origin vs PE 2. Elevated troponins likely 2/2 demand ischemia 3. TURNER #Near syncope rule out TIA vs Cardiac origin vs PE -CTA negative for PE -MRI brain pending (stroke alert called last night 2/2 wandering shin and possible right facial asymmetry) Rule out CVA -Cardiology consult: Echo shows some /AR but otherwise okay; Outpatient referral to Cardiology for further monitoring and work up #Elevated troponins -down trending; no longer following -likely due to demand ischemia; echo pending for structural heart disease #TURNER-resolved with IV hydration -IV fluids discontinued this morning DVT prophylaxis: IV heparin/ambulate Code status: DNR/DNI Discharge: anticipate discharge possibly tomorrow if echo results are in. Problem List: 1. Light-headed feeling 2. Elevated troponin 3. Heart murmur Pain Ratin Pain Location: none Pain Goal: Remain pain free Pain Plan: PRN Tomorrow's Labs & Rationales: none Adali Mackenzie MD 02/20/18 0946: Attending MD Review Statement Attending Statement Attending MD Statement: examined this patient, discuss w/resident/PA/BAR WELDER, agreed w/resident/PA/BAR WELDER, reviewed EMR data (avail), discussed with nursing, discussed with case mgmt, reviewed images Attending Assessment/Plan: Events from this morning noted. There was a question of a stroke. When the night float team saw the patient he was neurologically completely intact. As he was last seen well at 11 PM last night he is not a candidate for thrombolytics. We will follow up on the MRI. His CTA was negative for PE, echo showed mild to moderate AI for which he will need close outpatient follow-up.
[2018-02-20 08:11] LABS: ABSOLUTE BASOPHIL COUNT 0 /CUMM (0.0-0.2); ABSOLUTE EOSINOPHIL COUNT 0.1 /CUMM (0.0-0.7); ABSOLUTE GRANULOCYTE CT 3.6 /CUMM (1.4-6.5); ABSOLUTE LYMPH COUNT 1.3 /CUMM (1.2-3.4); ABSOLUTE MONOCYTE COUNT 0.3 /CUMM (0.10-0.60); BASOPHIL % 0.6 % (0.0-2.0); EOSINOPHIL % 2.1 % (0-5); GRANULOCYTE % 67.8 % (42.2-75.2); HEMATOCRIT 37.2 % (42-52); MEAN CORPUSCULAR HGB 32.1 PG (27.0-31.0); MEAN CORPUSCULAR VOLUME 94.2 FL (80.0-94.0); MEAN PLATELET VOLUME 7.5 FL (7.4-10.4); PLATELET COUNT 258 /CUMM (130-400); RBC DISTRIBUTION WIDTH 13.6 % (11.5-14.5); RED BLOOD CELL CT 3.95 /CUMM (4.70-6.10); WHITE BLOOD CELL COUNT 5.3 /CUMM (4.8-10.8)
[2018-02-20 08:17] VITALS: BP 164/84
--- NOTE | 2018-02-20 08:43 | ECHOCARDIOGRAM REPORT ---
SHAHRAM JENNINGS Age: 77 : 1940 Gender: M Exam Date: 02/19/2018 10:04 Exam Location: [address] Ht (in): 67 Wt (lb): 150 BSA: 1.80 BP: 140 / 82 Ordering Physician: Jeffery Morales MD Referring Physician: Jeffrey Morales MD Technologist: Mele Arevalo [facility] Room Number: 177-1 Indications: lightheadedness Rhythm: Technical Quality: good FINDINGS Left Ventricle Normal LV chamber size and wall thickness. The estimated LVEF is 60%. There are no focal wall motion abnormalities. Right Ventricle Normal appearing right ventricle size and function. Right Atrium Normal appearing right atrium Left Atrium Normal appearing left atrium Mitral Valve Mildly thickened and calcified mitral valve leaflets with normal leaflet opening. There is trace to mild mitral regurgitation. Aortic Valve Trileaflet aortic valve with mild leaflet calcification and thickening. There is adequate leaflet opening. The mean transvalvular gradient is 11.5 millimeters Hg with an aortic valve area calculated at 1 0.7 centimeters squared. There is mild-to- moderate aortic insufficiency. Tricuspid Valve Normal appearing tricuspid valvular leaflets, structure and function. There is mild tricuspid regurgitation. Pulmonic Valve Normal appearing pulmonic valve leaflets, structure and function. Pericardium Normal appearing pericardium without pericardial effusion. Great Vessels CONCLUSIONS Normal LV chamber size and wall thickness. The estimated LVEF is 60%. There are no focal wall motion abnormalities. There is trace to mild mitral regurgitation. Trileaflet aortic valve with mild leaflet calcification and thickening. There is adequate leaflet opening. The mean transvalvular gradient is 11.5 millimeters Hg with an aortic valve area calculated at 1 0.7 centimeters squared. There is mild-to- moderate aortic insufficiency. There is mild tricuspid regurgitation. Vini Montalvo M.D. (Electronically Signed) Final Date: 20 February 2018 08:39 MEASUREMENTS (Male / Female) Normal Values 2D ECHO LV Diastolic Diameter PLAX 4.1 cm 4.2 - 5.9 / 3.9 - 5.3 cm LV Systolic Diameter PLAX 2.8 cm 2.1 - 4.0 cm LV Fractional Shortening PLAX 33.4 % 25 - 46 % LV Ejection Fraction 2D Teich 62.6 % IVS Diastolic Thickness 1.0 cm LVPW Diastolic Thickness 1.1 cm LV Relative Wall Thickness 0.5 LVOT Diameter 2.2 cm Aortic Root Diameter 3.4 cm LA Systolic Diameter LX 2.3 cm 3.0 - 4.0 / 2.7 - 3.8 cm Ascending Aorta Diameter 3.6 cm DOPPLER AV Peak Velocity 225.0 cm/s AV Peak Gradient 20.3 mmHg AV Mean Velocity 156.5 cm/s AV Mean Gradient 11.5 mmHg AV Velocity Time Integral 53.1 cm AI Deceleration Davis 224.5 cm/s LVOT Peak Velocity 98.5 cm/s LVOT Peak Gradient 3.9 mmHg LVOT Mean Velocity 73.2 cm/s LVOT Mean Gradient 2.0 mmHg LVOT Velocity Time Integral 22.8 cm LVOT Stroke Volume 86.7 cm AV Area Cont Eq vti 1.6 cm AV Area Cont Eq pk 1.7 cm MV Peak Velocity 82.7 cm/s MV Peak Gradient 2.7 mmHg MV Mean Velocity 52.3 cm/s MV Mean Gradient 1.0 mmHg Mitral E Point Velocity 52.3 cm/s Mitral A Point Velocity 75.0 cm/s Mitral E to A Ratio 0.7 MV PHT Velocity 67.9 cm/s MV Deceleration Davis 137.0 cm/s MV Pressure Half Time 148.7 ms MV Area PHT 1.5 cm MV Deceleration Time 278.0 ms TR Peak Velocity 212.0 cm/s TR Peak Gradient 18.0 mmHg PV Peak Velocity 96.4 cm/s PV Peak Gradient 3.7 mmHg LV E' Lateral Velocity 5.0 cm/s Mitral E to LV E' Lateral Ratio 10.5 LV E' Septal Velocity 5.2 cm/s Mitral E to LV E' Septal Ratio 10.1
--- NOTE | 2018-02-20 10:28 | Cons- Neurology ---
General Information and HPI Consulting Request Date of Consult: 02/20/18 Requested By: Adali Mackenzie MD Reason for Consult: Recurrent episodes of confusion and dizziness Source of Information: patient Exam Limitations: no limitations History of Present Illness: This is a very pleasant 77-year-old man who presented to the hospital due to complaints of significant dizziness while at work. While in the hospital he he has had over the last 24 hours to events in which he was found to be confused and according to the nurse had slurred speech and a right-sided facial droop. These events lasted a brief period and then resolved. The patient recalls waking up in the morning at around 5 AM and being walked somewhere but is confused about what had actually happened. He points out that he was partially asleep. On further inquiry he notes that he was at work at [employer] when he suddenly felt very woozy and had to sit down. He denies any posterior circulation in terms of the time. 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 Denies any posterior circulation symptoms. He never actually passed out at any point in time. He is otherwise very healthy and has been healthy all his life. Allergies/Medications Allergies: Coded Allergies: No Known Allergies (12/27/15) Home Med List: Aspirin (Aspirin*) 325 MG TABLET 325 MG PO DAILY Heart health Atorvastatin Calcium 80 MG TABLET 80 MG PO 1700 Cholesterol Mirtazapine 15 MG TABLET 1 TAB PO QPM DEPRESSION (Reported) Current Medications: Current Medications Sig/Sony Start time Last Medication Dose Route Stop Time Status Admin Amlodipine Besylate 2.5 MG ONCE ONE 02/20 0645 DC 02/20 PO 02/20 0646 0700 Aspirin 325 MG DAILY 02/19 0900 AC 02/20 PO 0951 Atorvastatin Calcium 80 MG 1700 02/19 1700 AC 02/19 PO 1619 Heparin Sodium 3,200 UNIT ONCE ONE 02/19 1530 DC 02/19 (Porcine) IV 02/19 1531 1538 Heparin Sodium 25,000 UNIT Q24H 02/19 0315 DC 02/19 (Porcine) IV 0400 Sodium Chloride 500 ML Metoprolol Tartrate 12.5 MG BID 02/19 2100 AC 02/20 PO 0952 Mirtazapine 15 MG QPM 02/19 2100 AC 02/19 PO 2028 Review of Systems Review of Systems: The temporal complete review of system is otherwise negative. Past History Travel History Traveled to [place] past 21 day No Medical History Neurological: NONE EENT: NONE Cardiovascular: NONE Respiratory: NONE Gastrointestinal: NONE Hepatic: NONE Renal: NONE Musculoskeletal: NONE Psychiatric: NONE Endocrine: NONE Blood Disorders: NONE Cancer(s): prostate cancer Surgical History Surgical History: non-contributory Psychosocial History Smoking Status: Never Smoked ETOH Use: denies use Illicit Drug Use: denies illicit drug use Exam & Diagnostic Data Vital Signs and I&O Vital Signs Date Time Temp Pulse Resp B/P B/P Pulse O2 O2 Flow FiO2 Mean Ox Delivery Rate 02/21 952 81 132/78 02/20 0817 93 164/84 02/20 0700 70 180/96 02/20 0643 98.2 80 18 180/90 98 02/20 0543 96 Room Air 02/19 2228 98.3 72 16 136/76 96 Room Air 02/19 2029 128/68 02/19 1428 98.3 71 20 140/68 97 Room Air Intake & Output 02/20 1600 02/20 0800 02/20 0000 Intake Total 120 240 Output Total Balance 120 240 Intake, Oral 120 240 Patient 129 lb Weight Physical Exam: General: The patient is in no distress. Pleasant and cooperative. MSE: Alert and oriented 3. Good attention and concentration. Good short-term memory and fund of knowledge reflected through our conversation. Language is fluent with good comprehension and repetition. Cardiovascular: S1 and S2 are normal, regular rate and rhythm, and normal pedal pulses. Vision: Visual martins are intact. Neurological: Extra ocular movements intact, MELISSA, face is symmetric, tongue midline, uvula raises equally in the midline, V1-V3 sensation to touch is intact and equal bilaterallty, sternocleidomastoid and trapezius are strong on both sides, muscles of mastication are strong. No dysarthria noted. Motor exam reveals no abnormality of strength. Power is 5-5 throughout the distribution distally and proximally. Sensory exam did not reveal any deficits to touch, temperature, vibration and proprioception. Reflexes are symmetric bilaterally. Cerebellar exam does not reveal any dysmetria. Rapid alternating movements are intact bilaterally. Gait is steady with normal base. Last 48 Hours of Lab Results: Laboratory Tests 02/20 02/19 02/19 0620 2100 1145 Chemistry Sodium (137 - 145 mmol/L) 136 L Potassium (3.5 - 5.1 mmol/L) 4.2 Chloride (98 - 107 mmol/L) 103 Carbon Dioxide (22 - 30 mmol/L) 25 Anion Gap (5 - 16) 8 BUN (9 - 20 mg/dL) 22 H Creatinine (0.7 - 1.2 mg/dL) 1.2 Estimated GFR (>60 ml/min) 58 L BUN/Creatinine Ratio (7 - 25 %) 18.3 Coagulation APTT (25 - 37 SEC) Cancelled 44 H Hematology CBC w Diff NO MAN DIFF REQ WBC (4.8 - 10.8 /CUMM) 5.3 RBC (4.70 - 6.10 /CUMM) 3.95 L Hgb (14.0 - 18.0 G/DL) 12.6 L Hct (42 - 52 %) 37.2 L MCV (80.0 - 94.0 FL) 94.2 H MCH (27.0 - 31.0 PG) 32.1 H MCHC (33.0 - 37.0 G/DL) 34.0 RDW (11.5 - 14.5 %) 13.6 Plt Count (130 - 400 /CUMM) 258 MPV (7.4 - 10.4 FL) 7.5 Gran % (42.2 - 75.2 %) 67.8 Lymphocytes % (20.5 - 51.1 %) 23.9 Monocytes % (1.7 - 9.3 %) 5.6 Eosinophils % (0 - 5 %) 2.1 Basophils % (0.0 - 2.0 %) 0.6 Absolute Granulocytes (1.4 - 6.5 /CUMM) 3.6 Absolute Lymphocytes (1.2 - 3.4 /CUMM) 1.3 Absolute Monocytes (0.10 - 0.60 /CUMM) 0.3 Absolute Eosinophils (0.0 - 0.7 /CUMM) 0.1 Absolute Basophils (0.0 - 0.2 /CUMM) 0 02/19 02/19 02/18 0640 0117 2250 Chemistry Sodium (137 - 145 mmol/L) 134 L Potassium (3.5 - 5.1 mmol/L) 4.0 Chloride (98 - 107 mmol/L) 104 Carbon Dioxide (22 - 30 mmol/L) 25 Anion Gap (5 - 16) 5 BUN (9 - 20 mg/dL) 24 H Creatinine (0.7 - 1.2 mg/dL) 0.9 Estimated GFR (>60 ml/min) > 60 BUN/Creatinine Ratio (7 - 25 %) 26.7 H Troponin I (<0.11 ng/ml) 0.65 *H 1.01 *H Triglycerides (<150 mg/dL) 39 Cholesterol (< 200 MG/DL) 157 LDL Cholesterol, Calc (65 - 129 mg/dL) 99 HDL Cholesterol (40 - 60 mg/dL) 51 Cholesterol/HDL Ratio (0.00 - 4.88 %) 3.1 Coagulation PT (9.4 - 12.5 SEC) 13.0 H INR (0.90 - 1.17) 1.19 H APTT (25 - 37 SEC) 39 H Hematology CBC w Diff NO MAN DIFF REQ WBC (4.8 - 10.8 /CUMM) 4.9 RBC (4.70 - 6.10 /CUMM) 3.51 L Hgb (14.0 - 18.0 G/DL) 11.3 L Hct (42 - 52 %) 32.7 L MCV (80.0 - 94.0 FL) 93.3 MCH (27.0 - 31.0 PG) 32.3 H MCHC (33.0 - 37.0 G/DL) 34.6 RDW (11.5 - 14.5 %) 13.2 Plt Count (130 - 400 /CUMM) 239 MPV (7.4 - 10.4 FL) 7.7 Gran % (42.2 - 75.2 %) 71.9 Lymphocytes % (20.5 - 51.1 %) 21.7 Monocytes % (1.7 - 9.3 %) 3.9 Eosinophils % (0 - 5 %) 2.0 Basophils % (0.0 - 2.0 %) 0.5 Absolute Granulocytes (1.4 - 6.5 /CUMM) 3.5 Absolute Lymphocytes (1.2 - 3.4 /CUMM) 1.1 L Absolute Monocytes (0.10 - 0.60 /CUMM) 0.2 Absolute Eosinophils (0.0 - 0.7 /CUMM) 0.1 Absolute Basophils (0.0 - 0.2 /CUMM) 0 02/18 Chemistry Sodium (137 - 145 mmol/L) 135 L Potassium (3.5 - 5.1 mmol/L) 4.1 Chloride (98 - 107 mmol/L) 99 Carbon Dioxide (22 - 30 mmol/L) 30 Anion Gap (5 - 16) 6 BUN (9 - 20 mg/dL) 29 H Creatinine (0.7 - 1.2 mg/dL) 1.3 H Estimated GFR (>60 ml/min) 53 L BUN/Creatinine Ratio (7 - 25 %) 22.3 Glucose (65 - 99 mg/dL) 112 H Calcium (8.4 - 10.2 mg/dL) 9.0 Total Bilirubin (0.2 - 1.3 mg/dL) 0.4 AST (17 - 59 U/L) 18 ALT (21 - 72 U/L) 19 L Alkaline Phosphatase (< 127 U/L) 42 Troponin I (<0.11 ng/ml) 0.19 *H Total Protein (6.3 - 8.2 g/dL) 6.3 Albumin (3.5 - 5.0 g/dL) 3.8 Globulin (1.9 - 4.2 gm/dL) 2.5 Albumin/Globulin Ratio (1.1 - 2.2 %) 1.5 Hematology CBC w Diff NO MAN DIFF REQ WBC (4.8 - 10.8 /CUMM) 9.1 RBC (4.70 - 6.10 /CUMM) 3.74 L Hgb (14.0 - 18.0 G/DL) 11.8 L Hct (42 - 52 %) 35.4 L MCV (80.0 - 94.0 FL) 94.6 H MCH (27.0 - 31.0 PG) 31.5 H MCHC (33.0 - 37.0 G/DL) 33.3 RDW (11.5 - 14.5 %) 13.5 Plt Count (130 - 400 /CUMM) 286 MPV (7.4 - 10.4 FL) 6.7 L Gran % (42.2 - 75.2 %) 88.1 H Lymphocytes % (20.5 - 51.1 %) 6.9 L Monocytes % (1.7 - 9.3 %) 4.5 Eosinophils % (0 - 5 %) 0.4 Basophils % (0.0 - 2.0 %) 0.1 Absolute Granulocytes (1.4 - 6.5 /CUMM) 8.0 H Absolute Lymphocytes (1.2 - 3.4 /CUMM) 0.6 L Absolute Monocytes (0.10 - 0.60 /CUMM) 0.4 Absolute Eosinophils (0.0 - 0.7 /CUMM) 0 Absolute Basophils (0.0 - 0.2 /CUMM) 0 Urines Urinalysis LIGHT H Urine Color (YEL,AMB,STR) YEL Urine Clarity (CLEAR) CLEAR Urine pH (5.0 - 8.0) 6.0 Ur Specific [place] (1.001 - 1.035) 1.025 Urine Protein (NEG,<30 MG/DL) TRACE H Urine Ketones (NEG) TRACE H Urine Nitrite (NEG) NEG Urine Bilirubin (NEG) NEG Urine Urobilinogen (0.1 - 1.0 EU/dl) 1.0 Ur Leukocyte Esterase (NEG) NEG Ur Microscopic SEDIMENT EXAMINED Urine RBC (0 - 5 /HPF) RARE Urine WBC (0 - 2 /HPF) RARE Ur Epithelial Cells (NONE,FEW) FEW Hyaline Casts (0/LPF) 1-3 H Urine Mucus (FEW,NONE) MOD H Urine Hemoglobin (NEG) NEG Urine Glucose (N MG/DL) NEG Imaging/Other Studies: FINDINGS: There is no evidence of acute intracranial hemorrhage, midline shift, mass effect, or extra-axial fluid collection. There is generalized cerebral and cerebellar volume loss. There is a background of fairly confluent hypoattenuation involving the cerebral white matter bilaterally, nonspecific, though most compatible with chronic microvascular ischemic change. No evidence of hydrocephalus. Dilated perivascular space in the left temporal stem. The calvarium is intact. Thoracic calcifications along the carotid siphons noted. Visualized paranasal sinuses and mastoid air cells are essentially clear. IMPRESSION: Stable exam. No acute intracranial hemorrhage or large territorial infarct. Please note, the background of chronic microvascular ischemic change limits evaluation for acute ischemia. MRI would be more sensitive to evaluate for acute ischemia. Assessment/Plan Assessment: 77-year-old with recurring dizziness and confusion episodes that are brief in nature and nonfocal. On the less there is concern for a TIA as per nurses he had right facial droop and was slurring and looking at his blood pressure this morning at the reported time that this event was occurring there is concern for possible TIA as blood pressure was very high. Recommendations: 1. Would focus on intracranial intra-arterial stenosis as this has been a recurrent TIA event and is likely a partially occluded vessel. Would obtain an MRI brain with MRA. 2. Although not certainly relevant as this is likely posterior circulation or small vessel problem could obtain carotids just to screen for vascular disease and an echo. 3. More importantly start a baby aspirin for now. 4. Obtain an EEG to rule out partial seizures. 5. Check orthostatic vitals. 6. Check hemoglobin A1c and lipids and if these are high start statin. YC Consult Acknowledgment - Thank you for your consult request.
--- NOTE | 2018-02-20 12:51 | MRI REPORT ---
EXAMINATION: MR BRAIN WITHOUT CONTRAST MR ANGIOGRAPHY HEAD WITHOUT CONTRAST CLINICAL INFORMATION: Rule out stroke. Altered mental status. COMPARISON: Head CT from earlier in the same morning on 02/20/2018. TECHNIQUE: Multiplanar, multisequence imaging of the brain was obtained without intravenous administration of contrast. 3-D [id number] MR angiography is performed. Multiple 3-D reformatted images are processed on the technologist workstation. FINDINGS: There is a punctate focus of diffusion signal abnormality in the precuneus of the superomedial right parietal lobe near the vertex. There is no evidence of hydrocephalus. No mass effect or midline shift is seen. There are moderate small vessel ischemic changes with diffuse parenchymal volume loss. No extra-axial fluid collections are seen. The brainstem and cerebellum are relatively normal. 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 Multiple chronic microhemorrhages are seen in the frontoparietal lobes, left greater than right side and primarily at the gutiérrez-white matter junction. The craniovertebral junction, marrow signal, and midline structures are normal. The major intracranial flow voids at the level of the z[place] of [place] are preserved. The dural venous sinus flow voids are maintained. The mastoid air cells and paranasal sinuses are fairly well aerated. There is a mild to moderate stenosis at the junction of the left P1/P2 segments. There is a fenestrated ACOM segment with an azygous CHARI. MRA of the [place] demonstrates a normal caliber to the remainder of the anterior and posterior circulation vasculature. No vessel occlusions are seen. No vascular malformation or aneurysms are identified. IMPRESSION: Punctate focus of diffusion signal abnormality in the precuneus of the posterosuperior right parietal lobe which may represent a small acute infarct. Moderate chronic white matter microangiopathy and diffuse parenchymal volume loss. 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 No vessel occlusions.
--- NOTE | 2018-02-20 15:19 | Discharge Summary ---
Hospital Course Allergies: Coded Allergies: No Known Allergies (12/27/15) Discharge Instructions Medications at Discharge Discharge Medications: Continue taking these medications: Mirtazapine (Mirtazapine) 15 MG TABLET 1 Tablet ORAL Every night Qty = 15 Start taking the following new medications: Atorvastatin Calcium (Atorvastatin Calcium) 80 MG TABLET 80 Milligram ORAL 5 PM Qty = 30 No Refills Aspirin (Aspirin*) 325 MG TABLET 325 Milligram ORAL DAILY Qty = 30 No Refills
[2018-02-20 15:20] VITALS: BP 142/78
--- NOTE | 2018-02-20 20:17 | ELECTROENCEPHALOGRAM REPORT ---
Electroencephalogram Report Electroencephalogram Results Date of service: 02/20/18 Attending MD: Gurdeep RUBY,Adali Garrett Label Fuser Tender: Christopher EEG Number: [id number] Test Utilizes: 10-20 system, 21 lead 18 channel digital recording Pertinent Hx/Physical/Neuro Findings/Clin Diagnosis: 77 year old with recurrent episodes of confusion. Inpatient Medications: Current Medications Sig/Sony Start time Last Medication Dose Route Stop Time Status Admin Amlodipine Besylate 2.5 MG ONCE ONE 02/20 0645 DC 02/20 PO 02/20 0646 0700 Aspirin 81 MG DAILY 02/21 0900 AC PO Aspirin 81 MG DAILY 02/20 1308 DC PO Aspirin 325 MG DAILY 02/19 0900 DC 02/20 PO 0951 Atorvastatin Calcium 80 MG 1700 02/19 1700 AC 02/20 PO 1805 Metoprolol Tartrate 12.5 MG BID 02/19 2100 AC 02/20 PO 1956 Mirtazapine 15 MG QPM 02/19 2100 AC 02/20 PO 1955 Interpretation: The recording demonstrates a slighly diminished frequency gradient as there are relatively equal alpha rhythms presiding throughout all regions. There are no paroxysmal sharps or spikes. There is no clear focal slowing. The posterior dominant rhythm is 8 hertz bilaterally. Impression: Normal recording in the awake and drowsy states.
[2018-02-20 23:53] VITALS: BP 138/72
[2018-02-21 06:42] VITALS: BP 194/96
--- NOTE | 2018-02-21 07:17 | PN- Housestaff ---
See Addendum Subjective Follow-up For: near syncope cva Complaints: no complaints Tele-Events Since Last Visit: Sinus bradycardia 55-85 Subjective: No acute events overnight. Patient reports he slept well. Informed him about negative EEG results this morning and importance of outpatient follow up with Cardiology and Neurology. Denies chest pain, sob, lightheadedness, confusion, n /v/d, dizziness. Review of Systems Constitutional: Reports: no symptoms. EENTM: Reports: no symptoms. Cardiovascular: Reports: no symptoms. Respiratory: Reports: no symptoms. Gastrointestinal: Reports: no symptoms. Genitourinary: Reports: no symptoms. Musculoskeletal: Reports: no symptoms. Skin: Reports: no symptoms. Objective Last 24 Hrs of Vital Signs/I&O Vital Signs Date Time Temp Pulse Resp B/P B/P Pulse O2 O2 Flow FiO2 Mean Ox Delivery Rate 02/21 0800 68 168/78 02/21 0642 98.2 63 18 194/96 98 Room Air 02/20 2353 98.2 65 18 138/72 97 Room Air 02/20 2136 Room Air 02/20 1956 66 142/80 02/20 1520 98.0 80 18 142/78 97 Room Air 02/20 0952 81 132/78 02/20 0817 93 164/84 Intake & Output 02/21 1600 02/21 0800 02/21 0000 Intake Total Output Total Balance Patient 129 lb Weight Physical Exam General Appearance: Alert, Oriented X3, Cooperative, No Acute Distress Skin: No Rashes Skin Temp/Moisture Exam: Warm/Dry HEENT: Atraumatic Neck: Supple Cardiovascular: Regular Rate, Normal S1, Normal S2, systolic murmur heard loudest at apex and right sternal border Lungs: Clear to Auscultation, Normal Air Movement Abdomen: Normal Bowel Sounds, Soft, No Tenderness Neurological: Normal Speech, Strength at 5/5 X4 Ext, Normal Tone, Sensation Intact, Cranial Nerves 3-12 NL Extremities: No Cyanosis, No Edema, Normal Pulses Assessment/Plan Assessment: 77 year old male with PMH prostate cancer (remote tx with radiation) presented with near syncope and admitted with elevated troponins. Problem List 1. Near syncope: Acute right parietal CVA 2. Elevated troponins likely 2/2 demand ischemia 3. 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 -EEG negative for seizure activity. -Cardiology consult: Echo shows some /AR but otherwise okay; Outpatient referral to Cardiology for further monitoring and work up #Elevated troponins -down trending; no longer following -likely due to demand ischemia; echo showed mild /AR #TURNER-resolved with IV hydration -IV fluids discontinued this morning DVT prophylaxis: ambulate/alps Code status: DNR/DNI Discharge: anticipate discharge today with Cardiology/Neurology outpatient follow up. Discharge on metoprolol, statin, asa Problem List: 1. CVA (cerebral vascular accident) 2. Heart murmur 3. Elevated troponin 4. Light-headed feeling Pain Ratin Pain Location: none Pain Goal: Remain pain free Pain Plan: PRN Tomorrow's Labs & Rationales: none
[2018-02-21 08:00] VITALS: BP 168/78
[2018-02-21] MEDS ORDERED: ASPIRIN81 M4 PO ×2 (08:22→09:23)
[2018-02-21] MEDS ORDERED: METOPROLOL TART25 M1 PO ×2 (08:22→09:23)
--- NOTE | 2018-02-21 08:58 | Patient Discharge Instructions ---
Discharge Instructions General Discharge Information You were seen/treated for: Acute stroke evaluated for heart murmur You had these procedures: echocardiogram electroencephalogram MRI/MRA CT imaging of head and neck Watch for these problems: difficulty walking, speaking, weakness to one side of body, drooping of facial muscles, lightheadedness, acute confusion, chest pain, shortness of breath Special Instructions: Follow up with Cardiology Dr. Montalvo and Neurology Dr. Hodge and your primary care physician within one week of discharge. Take all medications as prescribed Return for any new or returning symptoms or any concerns Diet Continue normal diet: Yes Recommended Diet: Regular Activity Full Activity/No Limits: Yes Activity Self Limited: Yes Acute Coronary Syndrome Inclusion Criteria At DC or during hospital stay patient has or had the following: ACS DIAGNOSIS No Discharge Core Measures Meds if any: Prescribed or Continued at Discharge Meds if any: NOT Prescribed or Continued at Discharge Congestive Heart Failure Inclusion Criteria At DC or during hospital stay patient has or had the following: CHF DIAGNOSIS No Discharge Core Measures Meds if any: Prescribed or Continued at Discharge Meds if any: NOT Prescribed or Continued at Discharge Cerebrovascular accident Inclusion Criteria At DC or during hospital stay patient has or had the following: CVA/TIA Diagnosis Yes Discharge Core Measures Meds if any: Prescribed or Continued at Discharge Antithrombotic Yes Statin (required if LDL =>70) Yes Anticoagulant No Meds if any: NOT Prescribed or Continued at Discharge Venous thromboembolism Inclusion Criteria VTE Diagnosis No VTE Type NONE VTE Confirmed by (Test) NONE Discharge Core Measures - Per Current guidelines, there needs to be overlap - treatment for the first 5 days of Warfarin therapy. - If discharged on Warfarin prior to 5 days of - overlap therapy, the patient will need to be - assessed for post discharge needs including - *Post discharge parental anticoagulation - *Warfarin and/or parental anticoagulation education - *Follow up date to check INR post discharge At least 5 days overlap therapy as Inpatient No Meds if any: Prescribed or Continued at Discharge Note: Overlap Therapy is Warfarin and Anticoagulant Meds if any: NOT Prescribed or Continued at Discharge
[2018-02-21] MEDS ORDERED: ATORVASTATIN CA80 M1 PO (09:23)
== END 2018-02-21 11:25 | DRG 65 ==
LOC: ERH 18:23 → ERHI 21:08 → 1NO 21:08 → ENRESERV 23:25 → 1NO 02-19 01:56 → ENPENDDIS 02-21 08:58 → ENTRNSPT 02-21 11:12 → EDTRNSPT 02-21 11:19 → EDTRNSPTSTS 02-21 11:19 → 1NO 02-21 11:25 → CMPTRNSPT 02-21 11:36
PROVIDERS: Emergency Medicine; Internal Medicine; Internal Medicine Adolescent Medicine; Physician Assistant Medical
DX: I63.9 Cerebral infarction, unspecified (principal); N17.9 Acute kidney failure, unspecified; I24.8 Other forms of acute ischemic heart disease; Z66 Do not resuscitate; Z85.46 Personal history of malignant neoplasm of prostate; R00.1 Bradycardia, unspecified
CPT/HCPCS: 1NP; 70551; 70555; ERO; 36415; 36592; 81001; 82436; 93005; 93010; 93306; 94799; 95816; J1644; J3490